=== PATIENT | male | born 1945 | race Caucasian/White ===

== ENCOUNTER 2016-12-20 08:45 | Outpatient (CLI) | payer MEDICARE, OTHER ==
[2016-12-20 09:19] LABS: ALT (SGPT) 13 U/L (0-55); AST (SGOT) 13 U/L (5-34); Albumin 4.1 g/dL (3.4-4.8); Alkaline Phosphatase 47 U/L (40-150); Anion Gap 14 mmol/L (10-20); BUN (Urea Nitrogen) 13 mg/dL (8.4-25.7); Bilirubin, Total 0.6 mg/dL (0.2-1.2); Calc. Creatinine Clearance 0 mL/min (70-130); Calcium 9.1 mg/dL (7.8-10.44); Carbon Dioxide 22 mmol/L (23-31); Chloride 108 mmol/L (98-107); Cholesterol 129 mg/dL (< 200 Desired); Estimated GFR-MDRD 90; Globulin 2.8 g/dL (2.4-3.5); Glucose 122 mg/dL (83-110); HDL Cholesterol 43 mg/dL (>60 Neg Risk); LDL Cholesterol, Calculated 74 mg/dL; Potassium 4.6 mmol/L (3.5-5.1); Protein, Total 6.9 g/dL (5.8-8.1); Sodium 139 mmol/L (136-145); Triglycerides 61 mg/dL (Less than 150)
== END 2016-12-20 08:46 | disposition home or self-care (01) ==
LOC: MADLAB 08:45
PROVIDERS: ATTEND Internal Medicine Cardiovascular Disease
DX: I50.22 Chronic systolic (congestive) heart failure (principal); I48.2 Chronic atrial fibrillation
CPT/HCPCS: 36415; 80053; 80061

== ENCOUNTER 2017-01-04 09:55 | Emergency (ER) | payer MEDICARE, OTHER ==
[2017-01-04 10:33] LABS: Clarity Hazy (Clear)
[2017-01-04 10:34] LABS: Bilirubin Negative (Negative); Blood, Urine Trace (Negative); Glucose, Urine (Dipstick) Negative (Negative); Leukocyte Trace (Negative); Nitrite Negative (Negative); Protein, Urine (Dipstick) Negative (Neg-Trace); Transitional Epithelial 0-3 HPF (0-3); Urobilinogen 0.2 mg/dL (0.2-1.0)
[2017-01-04 10:35] LABS: Bacteria/HPF 2+ HPF (None Seen); Renal Epithelial 0-3 HPF (0-3)
[2017-01-04] MEDS ORDERED: Ciprofloxacin 500 MG TAB ONE (10:44)
== END 2017-01-04 10:40 | disposition home or self-care (01) ==
LOC: MADERS 09:55
DX: N39.0 Urinary tract infection, site not specified (principal); I11.0 Hypertensive heart disease with heart failure; I50.9 Heart failure, unspecified; Z79.899 Other long term (current) drug therapy
CPT/HCPCS: 81003; 81015; 87086; 99283

== ENCOUNTER 2017-01-18 11:16 | Emergency (ER) | payer MEDICARE, OTHER ==
[2017-01-18 11:59] LABS: Clarity Hazy (Clear); Leukocyte Trace (Negative); Nitrite Negative (Negative); Protein, Urine (Dipstick) 30 mg/dL (Neg-Trace); pH, Urine 7.5 (5.0-9.0)
[2017-01-18 12:00] LABS: Bacteria/HPF 1+ HPF (None Seen); Bilirubin Negative (Negative); Blood, Urine Negative (Negative); Crystals/HPF 1+ AMORPH PHOS HPF (Negative); Glucose, Urine (Dipstick) Negative (Negative); RBC/HPF 0-3 HPF (0-3); Renal Epithelial 0-3 HPF (0-3); Transitional Epithelial 0-3 HPF (0-3); Urobilinogen 0.2 mg/dL (0.2-1.0)
[2017-01-18] MEDS ORDERED: Ciprofloxacin 500 MG TAB ONE (12:15)
== END 2017-01-18 12:10 | disposition home or self-care (01) ==
LOC: MADERS 11:16
DX: N39.0 Urinary tract infection, site not specified (principal); I11.0 Hypertensive heart disease with heart failure; I50.9 Heart failure, unspecified; Z79.899 Other long term (current) drug therapy
CPT/HCPCS: 81001; 87086; 99283

== ENCOUNTER 2017-03-01 13:48 | Emergency (ER) | payer MEDICARE, OTHER ==
[2017-03-01 14:26] LABS: Bilirubin Negative (Negative); Blood, Urine Trace (Negative); Clarity Cloudy (Clear); Glucose, Urine (Dipstick) Negative (Negative); Leukocyte Trace (Negative); Nitrite Negative (Negative); Protein, Urine (Dipstick) 30 mg/dL (Neg-Trace); Specific Gravity, Urine 1.025 (1.005-1.030); Urobilinogen 0.2 mg/dL (0.2-1.0)
[2017-03-01 14:28] LABS: Bacteria/HPF 3+ HPF (None Seen); Other Casts/LPF 4-6 MIXED CASTS LPF (0-3 Hyaline); Transitional Epithelial 0-3 HPF (0-3); WBC/HPF 21-50 HPF (0-3)
[2017-03-02] MEDS ORDERED: Sulfameth/Trimethoprim DS 800-160mg TAB ONE (19:00)
== END 2017-03-01 15:00 | disposition home or self-care (01) ==
LOC: MADERS 13:48
DX: N39.0 Urinary tract infection, site not specified (principal); I11.0 Hypertensive heart disease with heart failure; I50.9 Heart failure, unspecified
CPT/HCPCS: 81003; 81015; 87086; 99284

== ENCOUNTER 2024-01-23 17:35 | Inpatient (IN) | payer MEDICARE, OTHER ==
[2024-01-24 16:55] VITALS: BMI 27.2
[2024-01-24] MEDS: Acetaminophen 325 MG TAB PO PRN (18:48)
[2024-01-24] MEDS: Carvedilol 12.5 MG TAB PO SCH (20:09)
[2024-01-24] MEDS: Furosemide 40 MG TAB PO SCH (20:09)
[2024-01-24] MEDS: Cefdinir 300 MG CAP PO SCH (20:09)
[2024-01-25] MEDS: Pantoprazole DR 40 MG TAB PO SCH (08:13)
[2024-01-25] MEDS: Enoxaparin 40 MG (0.4 mL) SYRINGE SC SCH (08:13)
[2024-01-25] MEDS: Spironolactone 25 MG TAB PO SCH (08:13)
[2024-01-25] MEDS: Potassium Chloride 20 MEQ TAB PO SCH (08:13)
[2024-01-26] MEDS: Empagliflozin 25 MG TAB PO SCH (08:39)
[2024-01-26] MEDS: Acetaminophen 325 MG TAB PO PRN (13:57)
[2024-01-26] MEDS: Furosemide 40 MG TAB PO SCH (13:59)
[2024-01-26] MEDS: Polyethylene Glycol 3350 17 GM Packet PO SCH (15:05)
[2024-01-26] MEDS: Carvedilol 6.25 MG TAB PO SCH (21:02)
[2024-01-27] MEDS: Spironolactone 25 MG TAB PO SCH (08:19)
[2024-01-27] MEDS: Polyethylene Glycol 3350 17 GM Packet PO PRN (08:20)
[2024-01-30] MEDS: Carvedilol 3.125 MG TAB PO SCH (09:00)
[2024-01-30] MEDS: Spironolactone 25 MG TAB PO SCH (09:01)
[2024-01-30] MEDS: Nitrofurantoin Monohyd/M-Cryst 100 MG CAP PO SCH (20:24)
[2024-01-31] MEDS: Spironolactone 25 MG TAB PO SCH (08:19)
[2024-01-31] MEDS ORDERED: Sulfamethoxazole/Trimethoprim 800-160mg/20 ML UDCUP PO SCH (09:00)
[2024-02-02] MEDS: Emollient 15 oz bottle 450 ML, Triamcinolone Acetonide 200 MG TOP PRN (16:46)
[2024-02-04 05:50] LABS: Anion Gap 13 mmol/L (10-20); BUN (Urea Nitrogen) 25 mg/dL (8.4-25.7); Calc. Creatinine Clearance 78 mL/min (70-130); Carbon Dioxide 23 mmol/L (23-31); Chloride 105 mmol/L (98-107); Estimated GFR 77; Glucose 119 mg/dL (83-110); Potassium 4.3 mmol/L (3.5-5.1); Sodium 137 mmol/L (136-145)
[2024-02-05 14:29] VITALS: BMI 27.8
[2024-02-08] MEDS: Carvedilol 3.125 MG TAB PO SCH (20:12)
[2024-02-09 18:01] VITALS: BP 113/68; TEMP 98.6
== END 2024-02-09 19:30 | disposition home or self-care (01) | DRG 689 ==
LOC: MADMS 01-24 16:00
PROVIDERS: ADMIT Family Medicine; ATTEND Family Medicine
DX: N39.0 Urinary tract infection, site not specified (principal); G93.41 Metabolic encephalopathy; I13.0 Hypertensive heart and chronic kidney disease with heart failure and stage 1 through stage 4 chronic kidney disease, or unspecified chronic kidney disease; R53.81 Other malaise; I87.2 Venous insufficiency (chronic) (peripheral); N18.2 Chronic kidney disease, stage 2 (mild); D63.1 Anemia in chronic kidney disease; I50.9 Heart failure, unspecified; Z79.899 Other long term (current) drug therapy
CPT/HCPCS: 36415; 80048; J1650